=== PATIENT | female | born 1980 | race Asian ===

== ENCOUNTER 2024-03-01 10:25 | Emergency (ER) | payer SELFPAY ==
[~2024-03-01] VITALS: Ht 160 cm; Wt 58.0 kg
[2024-03-01 10:47] VITALS: O2SAT 100
[2024-03-01] MEDS: LIDOCAINE HCL 1% 20ML VIAL INFIL ONE (12:01)
[2024-03-01] MEDS ORDERED: BO1 TP (12:24)
[2024-03-01] MEDS: TETANUS, DIPHTHERIA, PERTUSSIS VAC/PF 0.5ML (>10YR OLD) IM ONE (13:35)
[2024-03-01] MEDS: BACITRACIN ZINC OINT UDPKT TOP ONE (13:54)
[2024-03-01 14:06] VITALS: BP 122/78; PULSE 59; RESP 18; TEMP 36.72516; O2SAT 100
== END 2024-03-01 14:07 | disposition home or self-care (01) ==
LOC: ER 10:25
DX: S91.312A Laceration without foreign body, left foot, initial encounter (principal); J45.909 Unspecified asthma, uncomplicated; Z98.890 Other specified postprocedural states; X58.XXXA Exposure to other specified factors, initial encounter; Y93.89 Activity, other specified; Y92.89 Other specified places as the place of occurrence of the external cause; Y99.8 Other external cause status
CPT/HCPCS: 81025; 73630; 12002; 99283; J3490; Z7610 ×2; 90715